=== PATIENT | male | born 1960 | race Two or more races ===

== ENCOUNTER 2020-11-04 10:47 | Observation (INO) ==
[2020-11-04 10:59] VITALS: BMI 27.6
--- NOTE | 2020-11-04 11:17 | DR.DIZZY ---
HPI Time seen Time Seen by Provider: 11/04/20 11:10 PCP Primary Care Physician: sunil HPI Comment HPI Comment: hx from d/t pt not speaking Croatian: has felt poorly for the past week w/weakness and sob; abruptly became dizzy this morning on way to work; associated with blurry vision; no n/v/abd pain, cp, sob, german, fevers or chills; lt ear bothers him a little and he has "a little diarrhea"; does not believe he's drinking appropriately for being out in heat like he is. Complaint Chief Complaint:: PT C/O 1 WEEK HISTORY OF MILD SHORTNESS OF BREATH. THIS MORNING WHILE WORKING OUTSIDE PT HAD A SUDDEN ONSET OF SEVERE DIZZINESS ASSOCIATED WITH BLURRY VISION AND GENERALIZED WEAKNESS. COVID-19 Coronavirus risk:travel/contact w/high risk person: No Has patient experienced Coronavirus symptoms: No Source History Provided: Patient Mode of Arrival Mode of Arrival: Ambulatory Timing Onset of Chief Complaint: 11/04/20 Context Stroke Symptoms: Dizziness PMH PMH Past Medical History: No Past Surgical History: Yes Surgical History: Appendectomy and Ortho Surgery Family History History of Family Medical Conditions: No Family Medical History: Diabetes Mellitus Social History Does patient currently use any type of tobacco product: No Have you used tobacco products in the last 12 months: No Type of Tobacco Use: None Does any household member use tobacco: No Alcohol Use: None Do you use any recreational Drugs:: No Lives With: Family Lives Where: Home Travel Risk Coronavirus risk:travel/contact w/high risk person: No Has patient experienced Coronavirus symptoms: No Infectious screening In the last 2 months have you had wt loss of >10#?: NO Have you had fever, night sweats or hemotysis?: No Have you traveled outside the country in the last 6 months?: No Isolation: Standard ROS Review of Systems Eyes: No Symptoms Reported ENTM: No Symptoms Reported Cardiovascular: No Symptoms Reported Genitourinary: No Symptoms Reported Musculoskeletal: No Symptoms Reported Integumentary: No Symptoms Reported Hematologic/Lymphatic: No Symptoms Reported Endocrine: No Symptoms Reported Psychiatric: No Symptoms Reported PE Vital Signs Vitals: Temperature 98.0 F Pulse Rate 61 Respiratory Rate 22 Blood Pressure [Left Arm] 162/78 Blood Pressure 160/79 O2 Sat by Pulse Oximetry 100 General Limitations: Language Barrier Head Head Exam: Normal Inspection Eyes Eye exam: Normal Appearance ENT ENT Exam: Normal Exam, Normal Oropharynx and Normal External Ear Exam Neck Neck Exam: Normal Inspection and Full ROM Chest Chest Inspection: Normal Inspection Respiratory Respiratory Exam: Normal Lung Sounds Bilat Cardiovascular Cardiovascular Exam: Regular Rate and Normal Rhythm Abdominal Exam Abdominal Exam: Normal Inspection, Normal Bowel Sounds and Soft Extremeties Extremities Exam: Normal Inspection and Full ROM Back Back Exam: Normal Inspection and Full ROM Neurologic Neurological Exam: Alert and Oriented X3 Psychiatric Psychiatric Exam: Normal Affect and Normal Mood Skin Skin Exam: Warm, Dry, Intact and Normal Color MDM Differential Diagnosis Differential Diagnosis: Dehydration, Electrolyte disorder, Meniere's disease, Myocardial infarction, TIA and Peripheral Vertigo COURSE Treatment Treatment: 12:56 now reports that he has had intermittent cp for some time but refused to be seen about it Reevaluation 1st: Unchanged Consultation Call Returned: 12:40 (Dr Foster accepts admission.) ROR Labs Reviewed Laboratory Results Reviewed?: Yes Result Diagrams: 11/04/20 11:25 11/04/20 11:25 Laboratory: WBC 7.4 X10^3/uL (3.6-10.0) 11/04/20 11:25 RBC 4.47 X10^6/uL (4.7-6.0) L 11/04/20 11:25 Hgb 13.7 g/dL (13.5-18.0) 11/04/20 11:25 Hct 39.2 % (42.0-54.0) L 11/04/20 11:25 MCV 87.8 fL (80.0-100.0) 11/04/20 11:25 MCH 30.6 pg (27.0-34.0) 11/04/20 11:25 MCHC 34.9 g/dL (33.0-35.0) 11/04/20 11:25 RDW 14.0 % (11.6-16.5) 11/04/20 11:25 Plt Count 203 X10^3/uL (150.0-450.0) 11/04/20 11:25 MPV 7.5 fL (7.4-11.0) 11/04/20 11:25 Neut % (Auto) 62.3 % (42.0-75.0) 11/04/20 11:25 Lymph % (Auto) 30.3 % (21.0-51.0) 11/04/20 11:25 [place] % (Auto) 5.3 % (0.0-13.0) 11/04/20 11:25 Eos % (Auto) 1.5 % (0.9-2.9) 11/04/20 11:25 Baso % (Auto) 0.6 % (0.2-1.0) 11/04/20 11:25 Neut # (Auto) 4.6 x10^3/uL (2.2-4.8) 11/04/20 11:25 Lymph # (Auto) 2.2 X10^3/uL (1.3-2.9) 11/04/20 11:25 [place] # (Auto) 0.4 x10^3/uL (0.3-0.8) 11/04/20 11:25 Eos # (Auto) 0.1 x10^3/uL (0.0-0.2) 11/04/20 11:25 Baso # (Auto) 0.0 X10^3/uL (0.0-0.1) 11/04/20 11:25 Absolute Nucleated RBC 0.0 /100WBC 11/04/20 11:25 Sodium 140 mmol/L (136-145) 11/04/20 11:25 Corrected Sodium 141 mmol/L (136-145) 11/04/20 11:25 Potassium 3.5 mmol/L (3.5-5.1) 11/04/20 11:25 Chloride 105 mmol/L (98-107) 11/04/20 11:25 Carbon Dioxide 24.6 mmol/L (21-32) 11/04/20 11:25 BUN 16 mg/dL (7-18) 11/04/20 11:25 Creatinine 0.97 mg/dL (0.70-1.30) 11/04/20 11:25 Est GFR (MDRD) Af Amer > 60 (>60) 11/04/20 11:25 Est GFR (MDRD) Non-Af > 60 (>60) 11/04/20 11:25 Glucose 147 mg/dL (65-99) H 11/04/20 11:25 Calcium 8.4 mg/dL (8.5-10.1) L 11/04/20 11:25 Corrected Calcium TNP 11/04/20 11:25 Total Bilirubin 0.40 mg/dL (0.2-1.0) 11/04/20 11:25 AST 27 Units/L (15-37) 11/04/20 11:25 ALT 63 Units/L (12-78) 11/04/20 11:25 Alkaline Phosphatase 100 Units/L (46-116) 11/04/20 11:25 Creatine Kinase 659 Units/L (39-308) H 11/04/20 11:25 CK-MB (CK-2) 7.5 ng/mL (0-4.0) H* 11/04/20 11:25 CK/CKMB % Calc 1.1 % (<4) 11/04/20 11:25 Troponin I < 0.02 ng/mL (0-1.5) 11/04/20 11:25 Total Protein 7.3 g/dL (6.4-8.2) 11/04/20 11:25 Albumin 3.7 g/dL (3.4-5.0) 11/04/20 11:25 Globulin 3.6 g/dL (2.5-4.5) 11/04/20 11:25 Albumin/Globulin Ratio 1.0 Ratio (1.1-2.1) L 11/04/20 11:25 Specimen Type Clean catch urine 11/04/20 11:49 Urine Color Yellow (YELLOW) 11/04/20 11:49 Urine Appearance Clear (CLEAR) 11/04/20 11:49 Urine pH 6.0 (5.0 - 8.0) 11/04/20 11:49 Ur Specific [place] 1.020 (1.000-1.030) 11/04/20 11:49 Urine Protein 1+ (NEGATIVE) 11/04/20 11:49 Urine Glucose (UA) Negative (NEGATIVE) 11/04/20 11:49 Urine Ketones Negative (NEGATIVE) 11/04/20 11:49 Urine Occult Blood 2+ (NEGATIVE) 11/04/20 11:49 Urine Nitrite Negative (NEGATIVE) 11/04/20 11:49 Urine Bilirubin Negative (NEGATIVE) 11/04/20 11:49 Urine Urobilinogen Normal (NORMAL) 11/04/20 11:49 Ur Leukocyte Esterase Negative (NEGATIVE) 11/04/20 11:49 Urine RBC 0-2 /HPF (0-3) 11/04/20 11:49 Urine WBC 0-2 /HPF (0-5) 11/04/20 11:49 Ur Squamous Epith Cells Rare /HPF (NEGATIVE) 11/04/20 11:49 Urine Bacteria Negative /HPF (NEGATIVE) 11/04/20 11:49 Ur Culture Indicated? No/not indicated 11/04/20 11:49 Opioid Opioid Risk Tool Age (John box if 16-45): No History of Preadolescent Sexual Abuse: No Total: 0 Total Score Risk Category: Low Risk Copyright: Alex GERMAIN predicting aberrant behaviors Diagnosis Discharge Problem: Dizziness, Breath, shortness, Elevated CK-MB level Chest pain Qualifiers: Chest pain type: unspecified Qualified Code(s): R07.9 - Chest pain, unspecified Headache Qualifiers: Headache type: other headache syndrome Qualified Code(s): G44.89 - Other headache syndrome Instructions Forms: Precautions for COVID19 Patient Portal Social Distancing
[2020-11-04 11:33] LABS: BASOPHILS % (AUTO) 0.6 % (0.2-1.0); EOSINOPHILS # (AUTO) 0.1 x10^3/uL (0.0-0.2); EOSINOPHILS % (AUTO) 1.5 % (0.9-2.9); HEMATOCRIT 39.2 % (42.0-54.0); HEMOGLOBIN 13.7 g/dL (13.5-18.0); LYMPHOCYTES # (AUTO) 2.2 X10^3/uL (1.3-2.9); LYMPHOCYTES % (AUTO) 30.3 % (21.0-51.0); MEAN CORPUSCULAR HEMOGLOBIN 30.6 pg (27.0-34.0); MEAN CORPUSCULAR HGB CONC 34.9 g/dL (33.0-35.0); MEAN CORPUSCULAR VOLUME 87.8 fL (80.0-100.0); MEAN PLATELET VOLUME 7.5 fL (7.4-11.0); MONOCYTES # (AUTO) 0.4 x10^3/uL (0.3-0.8); MONOCYTES % (AUTO) 5.3 % (0.0-13.0); NEUTROPHILS # (AUTO) 4.6 x10^3/uL (2.2-4.8); NEUTROPHILS % (AUTO) 62.3 % (42.0-75.0); PLATELET COUNT 203 X10^3/uL (150.0-450.0); RED BLOOD COUNT 4.47 X10^6/uL (4.7-6.0); WHITE BLOOD COUNT 7.4 X10^3/uL (3.6-10.0)
[2020-11-04 12:11] LABS: ALANINE AMINOTRANSFERASE 63 Units/L (12-78); ALBUMIN 3.7 g/dL (3.4-5.0); ALKALINE PHOSPHATASE 100 Units/L (46-116); ASPARTATE AMINO TRANSFERASE 27 Units/L (15-37); BLOOD UREA NITROGEN 16 mg/dL (7-18); CALCIUM 8.4 mg/dL (8.5-10.1); CARBON DIOXIDE 24.6 mmol/L (21-32); CHLORIDE 105 mmol/L (98-107); CKMB % 1.1 % (<4); COR NA(FOR HYPERGLY) 141 mmol/L (136-145); CREATINE KINASE 659 Units/L (39-308); CREATININE 0.97 mg/dL (0.70-1.30); SODIUM 140 mmol/L (136-145); TOTAL PROTEIN 7.3 g/dL (6.4-8.2); TROPONIN I < 0.02 ng/mL (0-1.5); eGFR NON BLACK RACES > 60 (>60)
[2020-11-04 12:11] LABS: BILIRUBIN,URINE NEGATIVE (NEGATIVE); BLOOD/HEMOGLOBIN,URINE 2+ (NEGATIVE); GLUCOSE, URINE NEGATIVE (NEGATIVE); KETONES,URINE NEGATIVE (NEGATIVE); LEUKOCYTE ESTERASE ,URINE NEGATIVE (NEGATIVE); NITRITES,URINE NEGATIVE (NEGATIVE); PROTEIN,URINE 1+ (NEGATIVE); UROBILINOGEN,URINE NORMAL (NORMAL)
[2020-11-04 12:12] LABS: CREATINE KINASE MB 7.5 ng/mL (0-4.0)
[2020-11-04 12:22] LABS: APPEARANCE,URINE CLEAR (CLEAR); COLOR,URINE YELLOW (YELLOW)
[2020-11-04 12:23] LABS: BACTERIA,URINE NEGATIVE /HPF (NEGATIVE); RBC,URINE 0-2 /HPF (0-3); SQUAMOUS EPITHELIAL CELL,UR RARE /HPF (NEGATIVE)
[2020-11-04] MEDS ORDERED: MICRO K EXTEN CAP 10 MEQ PO PRN (14:23)
[2020-11-04] MEDS ORDERED: POTASSIUM CHL 40 MEQ/NS 0.45% 500 ML IV PRN (14:23)
[2020-11-04] MEDS ORDERED: POTASSIUM CHL 60 MEQ/NS 0.45% 500 ML IV PRN (14:23)
[2020-11-04] MEDS ORDERED: POTASSIUM CHLORIDE LIQ 20 MEQ UDC PO PRN (14:23)
[2020-11-04] MEDS ORDERED: KLOR-CON PO PRN (14:23)
[2020-11-04] MEDS ORDERED: K-RIDER 10 MEQ/NS 100 ML 10 MEQ/100 ML BAG IV PRN (14:23)
[2020-11-04 17:55] LABS: CREATINE KINASE 601 Units/L (39-308); TROPONIN I < 0.02 ng/mL (0-1.5)
[2020-11-04 17:57] LABS: CREATINE KINASE MB 6.1 ng/mL (0-4.0)
[2020-11-04] MEDS: K-DUR TAB 20 MEQ PO PRN (18:17)
[2020-11-04 23:18] LABS: CKMB % 1.1 % (<4); CREATINE KINASE 519 Units/L (39-308); TROPONIN I < 0.02 ng/mL (0-1.5)
[2020-11-04 23:24] LABS: CREATINE KINASE MB 5.5 ng/mL (0-4.0)
[2020-11-05 05:56] LABS: CKMB % 1.1 % (<4); CREATINE KINASE 431 Units/L (39-308); TROPONIN I < 0.02 ng/mL (0-1.5)
[2020-11-05 05:57] LABS: CREATINE KINASE MB 4.9 ng/mL (0-4.0)
[2020-11-05 08:14] LABS: BASOPHILS # (AUTO) 0.1 X10^3/uL (0.0-0.1); BASOPHILS % (AUTO) 0.6 % (0.2-1.0); EOSINOPHILS # (AUTO) 0.1 x10^3/uL (0.0-0.2); EOSINOPHILS % (AUTO) 1.3 % (0.9-2.9); HEMATOCRIT 41.2 % (42.0-54.0); HEMOGLOBIN 14.3 g/dL (13.5-18.0); LYMPHOCYTES # (AUTO) 2.4 X10^3/uL (1.3-2.9); LYMPHOCYTES % (AUTO) 27.3 % (21.0-51.0); MEAN CORPUSCULAR HEMOGLOBIN 31.1 pg (27.0-34.0); MEAN CORPUSCULAR HGB CONC 34.7 g/dL (33.0-35.0); MEAN CORPUSCULAR VOLUME 89.7 fL (80.0-100.0); MEAN PLATELET VOLUME 8.4 fL (7.4-11.0); MONOCYTES # (AUTO) 0.6 x10^3/uL (0.3-0.8); MONOCYTES % (AUTO) 7.5 % (0.0-13.0); NEUTROPHILS # (AUTO) 5.5 x10^3/uL (2.2-4.8); NEUTROPHILS % (AUTO) 63.3 % (42.0-75.0); PLATELET COUNT 213 X10^3/uL (150.0-450.0); RED BLOOD COUNT 4.59 X10^6/uL (4.7-6.0); RED CELL DISTRIBUTION WIDTH 14.1 % (11.6-16.5); WHITE BLOOD COUNT 8.6 X10^3/uL (3.6-10.0)
[2020-11-05 08:20] LABS: ALANINE AMINOTRANSFERASE 57 Units/L (12-78); ALBUMIN 3.6 g/dL (3.4-5.0); ALKALINE PHOSPHATASE 92 Units/L (46-116); ASPARTATE AMINO TRANSFERASE 33 Units/L (15-37); BLOOD UREA NITROGEN 12 mg/dL (7-18); CALCIUM 8.9 mg/dL (8.5-10.1); CARBON DIOXIDE 25.1 mmol/L (21-32); CHLORIDE 106 mmol/L (98-107); CREATININE 0.82 mg/dL (0.70-1.30); SODIUM 142 mmol/L (136-145); TOTAL PROTEIN 7.2 g/dL (6.4-8.2); eGFR NON BLACK RACES > 60 (>60)
[2020-11-05] MEDS ORDERED: ZOFRAN INJ 4 MG VIAL ONE (09:54)
[2020-11-05] MEDS ORDERED: MORPHINE SULFATE INJ 2 MG INJ ONE (09:55)
[2020-11-05 10:53] LABS: CKMB % 1.1 % (<4); CREATINE KINASE 389 Units/L (39-308); TROPONIN I < 0.02 ng/mL (0-1.5)
[2020-11-05] MEDS ORDERED: MORPHINE SULFATE INJ 2 MG INJ IVP PRN (10:53)
[2020-11-05] MEDS ORDERED: ZOFRAN INJ 4 MG VIAL IVP PRN (10:55)
[2020-11-05 10:56] LABS: CREATINE KINASE MB 4.4 ng/mL (0-4.0)
[2020-11-05] MEDS: PROTONIX INJ 40 MG VIAL IVP SCH ×2 (11:24→21:24)
--- NOTE | 2020-11-05 11:39 | RAD ---
HISTORYCHEST PAIN, SOBSTUDYCHEST, 1 VIEWCOMPARISONNoneFINDINGSThe lungs are clear. No pneumothorax or significant effusion.The heart size is magnified.Bones are unremarkable.EKG leads are noted.IMPRESSION1. No significant abnormalityElectronically signed by: Neel Cottrell (Nov 05, 2020 11:37:49)
--- NOTE | 2020-11-05 15:22 | DR.H&P ---
H&P - History & Physical for Day of: H&P Date: 11/04/20 - Chief Complaint Chief Complaint: RIGHT SIDE CHEST PAIN, DIZZINESS - History of Present Illness History of Present Illness: PT IS 60 HM ER ADMISSION WITH CO REOCCURRING EPISODES OF SEVERE DIZZINESS TODAY WITH RIGHT SIDE CHEST PAIN. PT HAS CO GUSTAFSON AND DIZZINESS OVER PAST WEEK WITHOUT ANY FEVER, DENIES INCREASES SOB. PT WAS COVID NEG IN ER AND STATES HE HAD MODERNA VACCINE X2. PT SPOUSE REPORTS HE HAD ISSUES WITH BP LAST YEAR, BUT NO MEDICATION AND DENIES ANY CAD. PT ADMITTED FOR TREATMENT AND EVALUATION OF ACUTE ILLNESS. - Past Medical History Past Medical History: Hypertension - Past Surgical History Surgical History: Appendectomy, Ortho Surgery Additional Surgical History: SKIN GRAFT LLE - Family History Family Medical History: Diabetes Mellitus - Social History Does patient currently use any type of tobacco product: No Have you used tobacco products in the last 12 months: No Type of Tobacco Use: None Does any household member use tobacco: No Alcohol Use: None Drug Use: None - Medications Home Medications: No Known Allergies Allergy (Verified 09/10/17 19:12) CONTINUE taking the following medications NK 11/04/20 [History] - Review of Systems Constitutional: Weakness, Malaise Eyes: No Symptoms Reported ENT: No Symptoms Reported Respiratory: No Symptoms Reported Cardiovascular: Light Headedness Gastrointestinal: Nausea Genitourinary: No Symptoms Reported Musculoskeletal: No Symptoms Reported Skin: No Symptoms Reported Neurological: Other (DIZZINESS) - Physical Exam Vital Signs: Temperature 97.6 F Pulse Rate [Left Brachial] 51 Pulse Rate 61 Respiratory Rate 20 Blood Pressure [Left Arm] 144/83 Blood Pressure 160/79 O2 Sat by Pulse Oximetry 99 Oriented: Normal Eyes: Normal Ear: Normal Nose: Normal Throat: Normal Respiratory: Clear Throughout Cardiovascular: Bradycardia. negative: Murmur, Edema : Normal Auscultation: Bowel Sounds: Normal Palpation: Normal Tenderness: Normal Skin: Normal Musculoskeletal: Normal Psychiatric: Normal Mood Description: Calm Speech Pattern: Clear, Appropriate - Assessment/Plan (1) Chest pain Qualifiers: Chest pain type: unspecified Qualified Code(s): R07.9 - Chest pain, unspecified Status: Acute Plan: ADMIT, SERIAL CE AND EKG. CXR ON ADMISSION. BP CONTROL, STRICT I&OS. PAIN CONTROL, VERIFY HOME MEDICATION. TELEMETRY PRN SUPPLEMENTAL O2 (2) Bradycardia Status: Acute (3) Dizziness Status: Acute (4) Headache Qualifiers: Headache type: other headache syndrome Qualified Code(s): G44.89 - Other headache syndrome Status: Acute (5) Elevated CK-MB level Status: Acute - Allergies Allergies/Adverse Reactions: Allergies Allergy/AdvReac Type Severity Reaction Status Date / Time No Known Allergies Allergy Verified 09/10/17 19:12
[2020-11-05 15:53] LABS: FREE T4 (FREE THYROXINE) 1.08 ng/dL (0.76-1.46); TSH (3RD GENERATION) 2.003 uIU/mL (0.358-3.74)
[2020-11-05 16:04] LABS: CKMB % 1.1 % (<4); CREATINE KINASE 320 Units/L (39-308); CREATINE KINASE MB 3.6 ng/mL (0-4.0); TROPONIN I < 0.02 ng/mL (0-1.5)
[2020-11-05] MEDS ORDERED: APRESOLINE INJ 20 MG VIAL IVP PRN (16:19)
--- NOTE | 2020-11-05 16:51 | CT ---
HISTORYINRACTABLE DIZZINESS, HEADACHE, NVSTUDYBRAIN W/O CONCOMPARISONNone available.TECHNIQUEAxial non-contrast images of the head with coronal and sagittal reformats.Radiation dose: 1223.30 mGy-cm total DLPFINDINGSNo abnormal areas of acute attenuation in the brain parenchyma.Gonzalez-white differentiation remains intact.No intracranial, extra-axial, fluid collection.No hemorrhage.No mass, mass effect or midline shift.No ventriculomegaly.No acute fracture.Sinuses are well aerated.Mastoid air cells are well aerated.Globes and intraorbital contents are unremarkable.IMPRESSIONNo acute intracranial abnormality identified.Electronically signed by: Joselito Mcgee (Nov 05, 2020 16:49:26)
[2020-11-05] MEDS: NS 1000 ML 1,000 ML IV SCH (17:16)
[2020-11-05 21:21] LABS: CKMB % 1.2 % (<4); CREATINE KINASE 301 Units/L (39-308); CREATINE KINASE MB 3.6 ng/mL (0-4.0); TROPONIN I < 0.02 ng/mL (0-1.5)
[2020-11-05] MEDS ORDERED: PHENERGAN INJ 25 MG IM ONE (22:01)
[2020-11-05] MEDS: PHENERGAN INJ 25 MG IM ONE ×2 (22:17→22:20)
[2020-11-06 04:00] LABS: CKMB % 1.1 % (<4); CREATINE KINASE 333 Units/L (39-308); CREATINE KINASE MB 3.5 ng/mL (0-4.0); TROPONIN I < 0.02 ng/mL (0-1.5)
[2020-11-06] MEDS: PROTONIX INJ 40 MG VIAL IVP SCH ×2 (08:12→21:46)
[2020-11-06] MEDS: NS 1000 ML 1,000 ML IV SCH ×2 (08:12→22:46)
[2020-11-06 09:39] LABS: BASOPHILS % (AUTO) 0.2 % (0.2-1.0); EOSINOPHILS # (AUTO) 0.1 x10^3/uL (0.0-0.2); EOSINOPHILS % (AUTO) 0.6 % (0.9-2.9); HEMATOCRIT 41.8 % (42.0-54.0); HEMOGLOBIN 14.4 g/dL (13.5-18.0); LYMPHOCYTES % (AUTO) 19.8 % (21.0-51.0); MEAN CORPUSCULAR HEMOGLOBIN 30.6 pg (27.0-34.0); MEAN CORPUSCULAR HGB CONC 34.4 g/dL (33.0-35.0); MEAN CORPUSCULAR VOLUME 88.9 fL (80.0-100.0); MEAN PLATELET VOLUME 7.9 fL (7.4-11.0); MONOCYTES # (AUTO) 0.6 x10^3/uL (0.3-0.8); MONOCYTES % (AUTO) 6.3 % (0.0-13.0); NEUTROPHILS # (AUTO) 7.4 x10^3/uL (2.2-4.8); NEUTROPHILS % (AUTO) 73.1 % (42.0-75.0); PLATELET COUNT 216 X10^3/uL (150.0-450.0); RED BLOOD COUNT 4.71 X10^6/uL (4.7-6.0); RED CELL DISTRIBUTION WIDTH 14.1 % (11.6-16.5); WHITE BLOOD COUNT 10.1 X10^3/uL (3.6-10.0)
[2020-11-06 09:54] LABS: ALANINE AMINOTRANSFERASE 54 Units/L (12-78); ALBUMIN 3.7 g/dL (3.4-5.0); ALKALINE PHOSPHATASE 89 Units/L (46-116); ASPARTATE AMINO TRANSFERASE 29 Units/L (15-37); BLOOD UREA NITROGEN 16 mg/dL (7-18); CALCIUM 8.8 mg/dL (8.5-10.1); CARBON DIOXIDE 29.1 mmol/L (21-32); CHLORIDE 108 mmol/L (98-107); CREATININE 0.86 mg/dL (0.70-1.30); SODIUM 144 mmol/L (136-145); TOTAL PROTEIN 7.3 g/dL (6.4-8.2); eGFR NON BLACK RACES > 60 (>60)
--- NOTE | 2020-11-06 10:39 | US ---
HISTORYN/VSTUDYGALL BLADDERCOMPARISONNoneTECHNIQUEMultiple cerda scale and color flow Doppler images of the right upper quadrant were obtained.FINDINGSThe liver is mildly echogenic i.e. fatty but normal in size. The right lobe of the liver measures 14 cm sagittal. No focal intraparenchymal mass or intrahepatic biliary ductal dilatation can be observed. Normal flow is seen in the hepatic veins the main portal vein the gallbladder fails to demonstrate evidence for cholelithiasis but there is a small amount of dependent sludge.. The common bile duct is unremarkable measuring 2 mm. No pericholecystic fluid or gallbladder wall thickening can be observed .The right kidney appears normal in size without focal parenchymal mass or nephrolithiasis. The right kidney measurers 11 cm in length by 5.5 cm AP cortical thickness 1.8 cm with a transverse diameter of 5.8 cm. There is normal vascular flow within the right kidney. Resistance index is 0.68.. No hydronephrosis or perirenal fluid can be observed. The pancreatic head and body are unremarkable. The pancreatic tail is partially obscured by overlying bowel gas.There is normal flow in the IVC.IMPRESSIONThe liver is echogenic i.e. mildly fatty but normal in size. No focal hepatic lesions are dilated ducts are observed.The gallbladder contains a small amount of sludge but no stones are seen. The common duct is normal at 2 mm.The visualized portions of the pancreas and the right kidney are normal.Electronically signed by: CONNIE DIAS (Nov 06, 2020 10:37:47)
[2020-11-07 08:36] LABS: BASOPHILS # (AUTO) 0.1 X10^3/uL (0.0-0.1); BASOPHILS % (AUTO) 0.7 % (0.2-1.0); EOSINOPHILS # (AUTO) 0.1 x10^3/uL (0.0-0.2); EOSINOPHILS % (AUTO) 0.7 % (0.9-2.9); HEMATOCRIT 42.2 % (42.0-54.0); HEMOGLOBIN 14.5 g/dL (13.5-18.0); LYMPHOCYTES % (AUTO) 21.7 % (21.0-51.0); MEAN CORPUSCULAR HEMOGLOBIN 30.6 pg (27.0-34.0); MEAN CORPUSCULAR HGB CONC 34.4 g/dL (33.0-35.0); MEAN CORPUSCULAR VOLUME 88.8 fL (80.0-100.0); MEAN PLATELET VOLUME 7.8 fL (7.4-11.0); MONOCYTES # (AUTO) 0.5 x10^3/uL (0.3-0.8); MONOCYTES % (AUTO) 5.7 % (0.0-13.0); NEUTROPHILS # (AUTO) 6.7 x10^3/uL (2.2-4.8); NEUTROPHILS % (AUTO) 71.2 % (42.0-75.0); PLATELET COUNT 218 X10^3/uL (150.0-450.0); RED BLOOD COUNT 4.75 X10^6/uL (4.7-6.0); RED CELL DISTRIBUTION WIDTH 13.8 % (11.6-16.5); WHITE BLOOD COUNT 9.4 X10^3/uL (3.6-10.0)
[2020-11-07] MEDS: NS 1000 ML 1,000 ML IV SCH ×2 (08:36→11:13)
[2020-11-07] MEDS: PROTONIX INJ 40 MG VIAL IVP SCH ×2 (08:37→20:34)
[2020-11-07 08:54] LABS: ALANINE AMINOTRANSFERASE 53 Units/L (12-78); ALBUMIN 3.6 g/dL (3.4-5.0); ALKALINE PHOSPHATASE 85 Units/L (46-116); ASPARTATE AMINO TRANSFERASE 29 Units/L (15-37); BLOOD UREA NITROGEN 17 mg/dL (7-18); CALCIUM 8.9 mg/dL (8.5-10.1); CARBON DIOXIDE 30.6 mmol/L (21-32); CHLORIDE 108 mmol/L (98-107); CREATININE 0.87 mg/dL (0.70-1.30); SODIUM 144 mmol/L (136-145); TOTAL PROTEIN 7.2 g/dL (6.4-8.2); eGFR NON BLACK RACES > 60 (>60)
[2020-11-08] MEDS: NS 1000 ML 1,000 ML IV SCH ×3 (02:07→15:58)
[2020-11-08 08:17] LABS: BASOPHILS % (AUTO) 0.5 % (0.2-1.0); EOSINOPHILS # (AUTO) 0.1 x10^3/uL (0.0-0.2); EOSINOPHILS % (AUTO) 0.7 % (0.9-2.9); HEMATOCRIT 41.4 % (42.0-54.0); HEMOGLOBIN 14.5 g/dL (13.5-18.0); LYMPHOCYTES # (AUTO) 2.2 X10^3/uL (1.3-2.9); MEAN CORPUSCULAR VOLUME 88.5 fL (80.0-100.0); MEAN PLATELET VOLUME 7.9 fL (7.4-11.0); MONOCYTES # (AUTO) 0.6 x10^3/uL (0.3-0.8); MONOCYTES % (AUTO) 6.7 % (0.0-13.0); NEUTROPHILS # (AUTO) 6.4 x10^3/uL (2.2-4.8); NEUTROPHILS % (AUTO) 68.1 % (42.0-75.0); PLATELET COUNT 225 X10^3/uL (150.0-450.0); RED BLOOD COUNT 4.68 X10^6/uL (4.7-6.0); WHITE BLOOD COUNT 9.4 X10^3/uL (3.6-10.0)
[2020-11-08] MEDS: PROTONIX INJ 40 MG VIAL IVP SCH ×2 (08:47→20:46)
[2020-11-08 09:11] LABS: ALANINE AMINOTRANSFERASE 47 Units/L (12-78); ALBUMIN 3.7 g/dL (3.4-5.0); ALKALINE PHOSPHATASE 87 Units/L (46-116); ASPARTATE AMINO TRANSFERASE 27 Units/L (15-37); BLOOD UREA NITROGEN 11 mg/dL (7-18); CALCIUM 8.8 mg/dL (8.5-10.1); CHLORIDE 107 mmol/L (98-107); CREATININE 0.85 mg/dL (0.70-1.30); SODIUM 142 mmol/L (136-145); TOTAL PROTEIN 7.3 g/dL (6.4-8.2); eGFR NON BLACK RACES > 60 (>60)
[2020-11-08] MEDS ORDERED: LEXISCAN IV ONE (12:50)
[2020-11-08] MEDS: K-DUR TAB 20 MEQ PO PRN (13:37)
[2020-11-08] MEDS: ZESTRIL TAB 5 MG PO SCH (20:46)
[2020-11-09] MEDS: NS 1000 ML 1,000 ML IV SCH ×3 (02:19→22:46)
[2020-11-09 08:40] LABS: BASOPHILS % (AUTO) 0.5 % (0.2-1.0); EOSINOPHILS # (AUTO) 0.1 x10^3/uL (0.0-0.2); EOSINOPHILS % (AUTO) 0.7 % (0.9-2.9); HEMOGLOBIN 14.8 g/dL (13.5-18.0); LYMPHOCYTES % (AUTO) 20.6 % (21.0-51.0); MEAN CORPUSCULAR HEMOGLOBIN 30.6 pg (27.0-34.0); MEAN CORPUSCULAR HGB CONC 34.5 g/dL (33.0-35.0); MEAN CORPUSCULAR VOLUME 88.7 fL (80.0-100.0); MEAN PLATELET VOLUME 7.8 fL (7.4-11.0); MONOCYTES # (AUTO) 0.5 x10^3/uL (0.3-0.8); MONOCYTES % (AUTO) 5.5 % (0.0-13.0); NEUTROPHILS # (AUTO) 6.9 x10^3/uL (2.2-4.8); NEUTROPHILS % (AUTO) 72.7 % (42.0-75.0); PLATELET COUNT 231 X10^3/uL (150.0-450.0); RED BLOOD COUNT 4.85 X10^6/uL (4.7-6.0); RED CELL DISTRIBUTION WIDTH 13.9 % (11.6-16.5); WHITE BLOOD COUNT 9.5 X10^3/uL (3.6-10.0)
[2020-11-09 08:53] LABS: BLOOD UREA NITROGEN 12 mg/dL (7-18); CALCIUM 8.9 mg/dL (8.5-10.1); CHLORIDE 105 mmol/L (98-107); COR NA(FOR HYPERGLY) 141 mmol/L (136-145); CREATININE 0.84 mg/dL (0.70-1.30); SODIUM 141 mmol/L (136-145); eGFR NON BLACK RACES > 60 (>60)
[2020-11-09] MEDS: PROTONIX INJ 40 MG VIAL IVP SCH ×2 (09:57→21:25)
[2020-11-09] MEDS: ZESTRIL TAB 5 MG PO SCH (09:57)
[2020-11-09 11:50] LABS: ALANINE AMINOTRANSFERASE 43 Units/L (12-78); ALBUMIN 3.8 g/dL (3.4-5.0); ALKALINE PHOSPHATASE 87 Units/L (46-116); ASPARTATE AMINO TRANSFERASE 25 Units/L (15-37); TOTAL PROTEIN 7.5 g/dL (6.4-8.2)
[2020-11-09] MEDS ORDERED: PEPCID TAB 20 MG PO ONE (23:32)
[2020-11-10 04:03] VITALS: BP 120/70
[2020-11-10 06:05] LABS: BASOPHILS # (AUTO) 0.1 X10^3/uL (0.0-0.1); BASOPHILS % (AUTO) 0.5 % (0.2-1.0); EOSINOPHILS # (AUTO) 0.1 x10^3/uL (0.0-0.2); EOSINOPHILS % (AUTO) 0.8 % (0.9-2.9); HEMATOCRIT 38.1 % (42.0-54.0); HEMOGLOBIN 13.4 g/dL (13.5-18.0); LYMPHOCYTES # (AUTO) 1.7 X10^3/uL (1.3-2.9); LYMPHOCYTES % (AUTO) 15.7 % (21.0-51.0); MEAN CORPUSCULAR HEMOGLOBIN 30.9 pg (27.0-34.0); MEAN CORPUSCULAR HGB CONC 35.1 g/dL (33.0-35.0); MEAN CORPUSCULAR VOLUME 88.1 fL (80.0-100.0); MEAN PLATELET VOLUME 7.7 fL (7.4-11.0); MONOCYTES # (AUTO) 0.9 x10^3/uL (0.3-0.8); MONOCYTES % (AUTO) 8.2 % (0.0-13.0); NEUTROPHILS # (AUTO) 8.1 x10^3/uL (2.2-4.8); NEUTROPHILS % (AUTO) 74.8 % (42.0-75.0); PLATELET COUNT 217 X10^3/uL (150.0-450.0); RED BLOOD COUNT 4.32 X10^6/uL (4.7-6.0); RED CELL DISTRIBUTION WIDTH 13.9 % (11.6-16.5); WHITE BLOOD COUNT 10.8 X10^3/uL (3.6-10.0)
[2020-11-10 06:25] LABS: ALANINE AMINOTRANSFERASE 38 Units/L (12-78); ALBUMIN 3.4 g/dL (3.4-5.0); ALKALINE PHOSPHATASE 86 Units/L (46-116); ASPARTATE AMINO TRANSFERASE 21 Units/L (15-37); BLOOD UREA NITROGEN 13 mg/dL (7-18); CALCIUM 8.5 mg/dL (8.5-10.1); CARBON DIOXIDE 29.6 mmol/L (21-32); CHLORIDE 108 mmol/L (98-107); CREATININE 0.81 mg/dL (0.70-1.30); SODIUM 143 mmol/L (136-145); TOTAL PROTEIN 6.8 g/dL (6.4-8.2); eGFR NON BLACK RACES > 60 (>60)
[2020-11-10] MEDS: ZESTRIL TAB 5 MG PO SCH (09:54)
[2020-11-10] MEDS: PROTONIX INJ 40 MG VIAL IVP SCH (09:54)
--- NOTE | 2020-11-10 13:11 | NM ---
Nuclear medicine hepatobiliary scanEjection fractionIndication: Right upper quadrant pain.Comparison: November 06, 2020 sonogramTECHNIQUE5.3 millicuries of technetium 99 M Choletec given IV, with 8 ounces of Ensure Plus for ejection fraction given. Planar imaging obtained. Ejection fraction calculatedFindings: There is prompt uptake of radiotracer by the liver. Gallbladder begins filling by 20 minutes. Common bile duct and small bowel activity are normal. Ejection fraction calculated at 20 3 percent by 30 minutes.Impression:1. No evidence of acute cholecystitis2. Decreased ejection fraction. Gallbladder dysfunction possible.Electronically signed by: DIANE FRAUSTO (Nov 10, 2020 13:08:50)
== END 2020-11-10 14:55 | disposition home or self-care (01) ==
LOC: MED/SURG 10:52 → ER 10:52 → MED/SURG 14:10
PROVIDERS: ADMIT Internal Medicine; ATTEND Internal Medicine
DX: R94.30 Abnormal result of cardiovascular function study, unspecified; R51.9 Headache, unspecified; R42 Dizziness and giddiness; Z20.822 Contact with and (suspected) exposure to COVID-19; R07.89 Other chest pain; R00.1 Bradycardia, unspecified; R55 Syncope and collapse; R53.1 Weakness; R06.2 Wheezing; I10 Essential (primary) hypertension

== ENCOUNTER 2023-12-10 15:15 | Inpatient (IN) ==
[2023-12-10 15:33] VITALS: BMI 27.7
--- NOTE | 2023-12-10 15:34 | DR.DIZZY ---
HPI Time seen Time Seen by Provider: 12/10/23 15:33 PCP Primary Care Physician: Holden Sorto NP Complaint Chief Complaint:: c/o generalized weakness for approx 1 week. reports SOB and CP occasionally but not at this time. COVID-19 Coronavirus risk:travel/contact w/high risk person: No Has patient experienced Coronavirus symptoms: No Source History Provided: Significant Other Mode of Arrival Mode of Arrival: Ambulatory Timing Onset of Chief Complaint: 12/10/23 PMH PMH Past Medical History: Yes Past Medical History: Arthritis and Hypertension Past Surgical History: Yes Surgical History: Appendectomy Past Surgical History Comment: skin graft left thigh Family History History of Family Medical Conditions: Yes Family Medical History: Diabetes Mellitus, Coronary Artery Disease and Hypertension Social History Type of Tobacco Use: None Alcohol Use: None Do you use any recreational Drugs:: No Lives With: Spouse Lives Where: Home Travel Risk Coronavirus risk:travel/contact w/high risk person: No Has patient experienced Coronavirus symptoms: No Infectious screening Have you traveled outside the country in the last 6 months?: No Isolation: Standard PE Vital Signs Vitals: Vital Signs Temperature 97.7 F Pulse Rate 55 Pulse Rate 57 Pulse Rate 56 Pulse Rate 70 Respiratory Rate 20 Respiratory Rate 20 Respiratory Rate 20 Respiratory Rate 22 Blood Pressure 128/66 Blood Pressure 128/66 Blood Pressure 138/66 Blood Pressure 128/66 O2 Sat by Pulse Oximetry 96 O2 Sat by Pulse Oximetry 99 O2 Sat by Pulse Oximetry 97 O2 Sat by Pulse Oximetry 96 [facility]OR Labs Reviewed 12/10/23 16:10 12/10/23 16:10 Laboratory: WBC 10.0 X10^3/uL (3.6-10.0) 12/10/23 16:10 RBC 4.08 X10^6/uL (4.7-6.0) L 12/10/23 16:10 Hgb 12.6 g/dL (13.5-18.0) L 12/10/23 16:10 Hct 36.6 % (42.0-54.0) L 12/10/23 16:10 MCV 89.8 fL (80.0-100.0) 12/10/23 16:10 MCH 31.0 pg (27.0-34.0) 12/10/23 16:10 MCHC 34.5 g/dL (33.0-35.0) 12/10/23 16:10 RDW 14.2 % (11.6-16.5) 12/10/23 16:10 Plt Count 179 X10^3/uL (150.0-450.0) 12/10/23 16:10 MPV 7.4 fL (7.4-11.0) 12/10/23 16:10 Neut % (Auto) 79.9 % (42.0-75.0) H 12/10/23 16:10 Lymph % (Auto) 14.2 % (21.0-51.0) L 12/10/23 16:10 [place] % (Auto) 4.0 % (0.0-13.0) 12/10/23 16:10 Eos % (Auto) 0.9 % (0.9-2.9) 12/10/23 16:10 Baso % (Auto) 1.0 % (0.2-1.0) 12/10/23 16:10 Neut # (Auto) 8.0 x10^3/uL (2.2-4.8) H 12/10/23 16:10 Lymph # (Auto) 1.4 X10^3/uL (1.3-2.9) 12/10/23 16:10 [place] # (Auto) 0.4 x10^3/uL (0.3-0.8) 12/10/23 16:10 Eos # (Auto) 0.1 x10^3/uL (0.0-0.2) 12/10/23 16:10 Baso # (Auto) 0.1 X10^3/uL (0.0-0.1) 12/10/23 16:10 Absolute Nucleated RBC 0.0 /100WBC 12/10/23 16:10 Sodium 136 mmol/L (136-145) 12/10/23 16:10 Corrected Sodium 137 mmol/L (136-145) 12/10/23 16:10 Potassium 4.1 mmol/L (3.5-5.1) 12/10/23 16:10 Chloride 101 mmol/L (98-107) 12/10/23 16:10 Carbon Dioxide 24.3 mmol/L (21-32) 12/10/23 16:10 BUN 19 mg/dL (7-18) H 12/10/23 16:10 Creatinine 0.84 mg/dL (0.70-1.30) 12/10/23 16:10 Est GFR (MDRD) Af Amer > 60 (>60) 12/10/23 16:10 Est GFR (MDRD) Non-Af > 60 (>60) 12/10/23 16:10 Glucose 136 mg/dL (65-99) H 12/10/23 16:10 Calcium 8.2 mg/dL (8.5-10.1) L 12/10/23 16:10 Corrected Calcium 8.8 mg/dL (8.5-10.1) 12/10/23 16:10 Total Bilirubin 0.40 mg/dL (0.2-1.0) 12/10/23 16:10 AST 52 Units/L (15-37) H 12/10/23 16:10 ALT 50 Units/L (12-78) 12/10/23 16:10 Alkaline Phosphatase 107 Units/L (46-116) 12/10/23 16:10 Creatine Kinase 2364 Units/L (39-308) H 12/10/23 16:10 Troponin I High Sens 41.8 ng/L (4.0-60.0) 12/10/23 16:10 Total Protein 6.6 g/dL (6.4-8.2) 12/10/23 16:10 Albumin 3.2 g/dL (3.4-5.0) L 12/10/23 16:10 Globulin 3.4 g/dL (2.5-4.5) 12/10/23 16:10 Albumin/Globulin Ratio 0.9 Ratio (1.1-2.1) L 12/10/23 16:10 Specimen Type Clean catch urine 12/10/23 16:20 Urine Color Yellow (YELLOW) 12/10/23 16:20 Urine Appearance Clear (CLEAR) 12/10/23 16:20 Urine pH 7.0 (5.0 - 8.0) 12/10/23 16:20 Ur Specific [place] 1.010 (1.000-1.030) 12/10/23 16:20 Urine Protein Negative (NEGATIVE) 12/10/23 16:20 Urine Glucose (UA) Negative (NEGATIVE) 12/10/23 16:20 Urine Ketones Negative (NEGATIVE) 12/10/23 16:20 Urine Blood Negative (NEGATIVE) 12/10/23 16:20 Urine Nitrite Negative (NEGATIVE) 12/10/23 16:20 Urine Bilirubin Negative (NEGATIVE) 12/10/23 16:20 Urine Urobilinogen Normal (NORMAL) 12/10/23 16:20 Ur Leukocyte Esterase Negative (NEGATIVE) 12/10/23 16:20 Opioid Opioid Risk Tool Age (John box if 16-45): No History of Preadolescent Sexual Abuse: No Total: 0 Total Score Risk Category: Low Risk Copyright: Alex GERMAIN predicting aberrant behaviors Discharge Plan Diagnosis Discharge Problem: Rhabdomyolysis, Generalized weakness, Chest pain Discharge Plan Patient Disposition: ADMITTED INPATIENT Condition: Stable Prescriptions: No Action ibuprofen 800 mg tablet 800 mg PO Q6H PRN (Reason: pain) tizanidine 4 mg tablet 4 mg PO Q8H PRN (Reason: muscle spasm) meloxicam 15 mg tablet 15 mg PO QDAY pantoprazole 40 mg tablet,delayed release (DR/EC) 40 mg PO QPM lisinopril 5 mg tablet 5 mg PO QDAY Health Concerns: Post Hospitalization: new medications and changes needed to prevent readmission or further decline. Pt educated and given instructions on all concerns. Plan of Treatment: Continue with present treatment and follow up plan. Pt is to keep follow up appointment as instructed and take medications as ordered. Orders to Discharge Patient Discharge Orders: Transfer (Routine); Ordered 12/10/23 Ordered By: MIRYAM MOMIN Follow ups/Referrals Follow ups/Referrals: HOLDEN SORTO [Primary Care Provider] - 3 days Instructions Stand Alone Forms: Post Hospital Follow Up Care
[2023-12-10] MEDS: NS 1,000 ML IV 1,000 ML IV ONE (16:09)
[2023-12-10 16:21] LABS: BASOPHILS # (AUTO) 0.1 X10^3/uL (0.0-0.1); EOSINOPHILS # (AUTO) 0.1 x10^3/uL (0.0-0.2); EOSINOPHILS % (AUTO) 0.9 % (0.9-2.9); HEMATOCRIT 36.6 % (42.0-54.0); HEMOGLOBIN 12.6 g/dL (13.5-18.0); LYMPHOCYTES # (AUTO) 1.4 X10^3/uL (1.3-2.9); LYMPHOCYTES % (AUTO) 14.2 % (21.0-51.0); MEAN CORPUSCULAR HGB CONC 34.5 g/dL (33.0-35.0); MEAN CORPUSCULAR VOLUME 89.8 fL (80.0-100.0); MEAN PLATELET VOLUME 7.4 fL (7.4-11.0); MONOCYTES # (AUTO) 0.4 x10^3/uL (0.3-0.8); NEUTROPHILS % (AUTO) 79.9 % (42.0-75.0); PLATELET COUNT 179 X10^3/uL (150.0-450.0); RED BLOOD COUNT 4.08 X10^6/uL (4.7-6.0); RED CELL DISTRIBUTION WIDTH 14.2 % (11.6-16.5)
[2023-12-10 16:29] LABS: BILIRUBIN,URINE NEGATIVE (NEGATIVE); BLOOD/HEMOGLOBIN,URINE NEGATIVE (NEGATIVE); GLUCOSE, URINE NEGATIVE (NEGATIVE); KETONES,URINE NEGATIVE (NEGATIVE); LEUKOCYTE ESTERASE ,URINE NEGATIVE (NEGATIVE); NITRITES,URINE NEGATIVE (NEGATIVE); PROTEIN,URINE NEGATIVE (NEGATIVE); UROBILINOGEN,URINE NORMAL (NORMAL)
[2023-12-10 16:35] LABS: APPEARANCE,URINE CLEAR (CLEAR); COLOR,URINE YELLOW (YELLOW)
[2023-12-10 16:41] LABS: ALANINE AMINOTRANSFERASE 50 Units/L (12-78); ALBUMIN 3.2 g/dL (3.4-5.0); ALKALINE PHOSPHATASE 107 Units/L (46-116); BLOOD UREA NITROGEN 19 mg/dL (7-18); CALCIUM 8.2 mg/dL (8.5-10.1); CARBON DIOXIDE 24.3 mmol/L (21-32); CHLORIDE 101 mmol/L (98-107); COR CA(FOR HYPOALB) 8.8 mg/dL (8.5-10.1); COR NA(FOR HYPERGLY) 137 mmol/L (136-145); CREATININE 0.84 mg/dL (0.70-1.30); GLUCOSE 136 mg/dL (65-99); POTASSIUM 4.1 mmol/L (3.5-5.1); SODIUM 136 mmol/L (136-145); TOTAL PROTEIN 6.6 g/dL (6.4-8.2); eGFR NON BLACK RACES > 60 (>60)
[2023-12-10 16:54] LABS: ASPARTATE AMINO TRANSFERASE 52 Units/L (15-37); CREATINE KINASE 2364 Units/L (39-308)
[2023-12-10] MEDS: NS 1,000 ML IV 1,000 ML IV SCH (17:42)
--- NOTE | 2023-12-10 18:31 | EKG ---
Test Reason : CHEST PAIN Blood Pressure : */* mmHG Vent. Rate : 52 BPM Atrial Rate : 52 BPM P-R Int : 128 ms QRS Dur : 90 ms QT Int : 414 ms P-R-T Axes : 45 5 26 degrees QTc Int : 385 ms Sinus bradycardia with premature supraventricular complexes Otherwise normal ECG When compared with ECG of 31-JUL-2022 16:06, premature supraventricular complexes are now present Confirmed by Saul Silveira MD ([id number]) on 12/11/2023 7:25:55 AM Referred By: Confirmed By: Saul Silveira MD
[2023-12-10] MEDS ORDERED: ZANAFLEX PO PRN (19:23)
[2023-12-10] MEDS: PROTONIX TAB 40 MG PO SCH (20:38)
[2023-12-11 06:13] LABS: BASOPHILS # (AUTO) 0.1 X10^3/uL (0.0-0.1); BASOPHILS % (AUTO) 0.4 % (0.2-1.0); EOSINOPHILS # (AUTO) 0.1 x10^3/uL (0.0-0.2); EOSINOPHILS % (AUTO) 0.5 % (0.9-2.9); HEMATOCRIT 36.2 % (42.0-54.0); HEMOGLOBIN 12.4 g/dL (13.5-18.0); LYMPHOCYTES # (AUTO) 1.9 X10^3/uL (1.3-2.9); LYMPHOCYTES % (AUTO) 14.9 % (21.0-51.0); MEAN CORPUSCULAR HEMOGLOBIN 30.5 pg (27.0-34.0); MEAN CORPUSCULAR HGB CONC 34.2 g/dL (33.0-35.0); MEAN CORPUSCULAR VOLUME 89.4 fL (80.0-100.0); MEAN PLATELET VOLUME 7.9 fL (7.4-11.0); MONOCYTES # (AUTO) 0.6 x10^3/uL (0.3-0.8); MONOCYTES % (AUTO) 4.8 % (0.0-13.0); NEUTROPHILS % (AUTO) 79.4 % (42.0-75.0); PLATELET COUNT 170 X10^3/uL (150.0-450.0); RED BLOOD COUNT 4.05 X10^6/uL (4.7-6.0); RED CELL DISTRIBUTION WIDTH 14.4 % (11.6-16.5); WHITE BLOOD COUNT 12.7 X10^3/uL (3.6-10.0)
[2023-12-11 06:30] LABS: ALANINE AMINOTRANSFERASE 52 Units/L (12-78); ALBUMIN 2.8 g/dL (3.4-5.0); ALKALINE PHOSPHATASE 78 Units/L (46-116); ASPARTATE AMINO TRANSFERASE 64 Units/L (15-37); BLOOD UREA NITROGEN 11 mg/dL (7-18); CALCIUM 7.8 mg/dL (8.5-10.1); CARBON DIOXIDE 25.4 mmol/L (21-32); CHLORIDE 105 mmol/L (98-107); COR CA(FOR HYPOALB) 8.8 mg/dL (8.5-10.1); CREATININE 0.66 mg/dL (0.70-1.30); GLUCOSE 97 mg/dL (65-99); POTASSIUM 3.8 mmol/L (3.5-5.1); SODIUM 137 mmol/L (136-145); TOTAL PROTEIN 5.9 g/dL (6.4-8.2); eGFR NON BLACK RACES > 60 (>60)
[2023-12-11 06:33] LABS: CREATINE KINASE 2329 Units/L (39-308)
[2023-12-11] MEDS ORDERED: CONSULT PHARMACY - POTASSIUM & MAGNESIUM XX SCH (09:00)
[2023-12-11] MEDS: MOBIC TAB 15 MG PO SCH (09:04)
[2023-12-11] MEDS: K-DUR TAB 20 MEQ PO SCH (09:05)
[2023-12-11 10:36] LABS: BILIRUBIN,URINE NEGATIVE (NEGATIVE); BLOOD/HEMOGLOBIN,URINE 1+ (NEGATIVE); GLUCOSE, URINE NEGATIVE (NEGATIVE); KETONES,URINE NEGATIVE (NEGATIVE); LEUKOCYTE ESTERASE ,URINE NEGATIVE (NEGATIVE); NITRITES,URINE NEGATIVE (NEGATIVE); PH,URINE 6.5 (5.0 - 8.0); PROTEIN,URINE NEGATIVE (NEGATIVE); UROBILINOGEN,URINE NORMAL (NORMAL)
[2023-12-11 10:44] LABS: APPEARANCE,URINE CLEAR (CLEAR); COLOR,URINE PALE YELLOW (YELLOW)
[2023-12-11 10:45] LABS: BACTERIA,URINE NEGATIVE /HPF (NEGATIVE); RBC,URINE 0-2 /HPF (0-3); SQUAMOUS EPITHELIAL CELL,UR NEGATIVE /HPF (NEGATIVE)
[2023-12-11] MEDS: NS 1,000 ML IV 1,000 ML IV SCH ×2 (11:04→13:00)
[2023-12-11] MEDS: ZESTRIL TAB 10 MG PO SCH (11:07)
--- NOTE | 2023-12-11 15:20 | DR.H&P ---
H&P History & Physical for Day of: H&P Date: 12/10/23 Chief Complaint Chief Complaint: WEAKNESS, SOB History of Present Illness History of Present Illness: PT IS 63 HM, ER ADMISSION AFTER PRESENTING WITH WEAKNESS, DIZZY SPELLS, NEAR SYNCOPE FOR THE PAST WEEK. PT REPORTS HE HAS BEEN WORKING OUTDOORS IN THE HEAT, SUN, WITH EXCESSIVE SWEATING. PT REPORTS HE HAS BEEN WEAK ALL OVER WITH MUSCLE CRAMPING. PT DENIES ANY FEVER OR FLU SYMPTOMS OVER THE PAST WEEK. PT IS ON LINSOPRIL FOR BP CONTROL AND REPORTS HE HAS BEEN TAKING IT DAILY. PT ADMITTED FOR TREATMENT AND EVALUATION OF ACUTE ILLNESS. Past Medical History Past Medical History: Arthritis and Hypertension Past Surgical History Surgical History: Appendectomy and Other Additional Surgical History: SKIN GRAFT LLE Family History Family Medical History: Hypertension Social History Type of Tobacco Use: None Alcohol Use: None Medications Home Medications: Home Medications Medication Instructions Recorded Confirmed Type lisinopril 5 mg tablet 5 mg PO QDAY 12/28/22 12/10/23 History meloxicam 15 mg tablet 15 mg PO QDAY 12/28/22 12/10/23 History pantoprazole 40 mg tablet,delayed 40 mg PO QPM 12/28/22 12/10/23 History release ibuprofen 800 mg tablet 800 mg PO Q6H PRN pain 12/10/23 12/10/23 History tizanidine 4 mg tablet 4 mg PO Q8H PRN muscle spasm 12/10/23 12/10/23 History Allergies Allergies Allergy/AdvReac Type Severity Reaction Status Date / Time No Known Allergies Allergy Verified 12/10/23 15:33 Labs 12/11/23 05:22 12/11/23 05:22 Labs: Laboratory WBC 12.7 X10^3/uL (3.6-10.0) H 12/11/23 05:22 RBC 4.05 X10^6/uL (4.7-6.0) L 12/11/23 05:22 Hgb 12.4 g/dL (13.5-18.0) L 12/11/23 05:22 Hct 36.2 % (42.0-54.0) L 12/11/23 05:22 MCV 89.4 fL (80.0-100.0) 12/11/23 05:22 MCH 30.5 pg (27.0-34.0) 12/11/23 05:22 MCHC 34.2 g/dL (33.0-35.0) 12/11/23 05:22 RDW 14.4 % (11.6-16.5) 12/11/23 05:22 Plt Count 170 X10^3/uL (150.0-450.0) 12/11/23 05:22 MPV 7.9 fL (7.4-11.0) 12/11/23 05:22 Neut % (Auto) 79.4 % (42.0-75.0) H 12/11/23 05:22 Lymph % (Auto) 14.9 % (21.0-51.0) L 12/11/23 05:22 [place] % (Auto) 4.8 % (0.0-13.0) 12/11/23 05:22 Eos % (Auto) 0.5 % (0.9-2.9) L 12/11/23 05:22 Baso % (Auto) 0.4 % (0.2-1.0) 12/11/23 05:22 Neut # (Auto) 10.0 x10^3/uL (2.2-4.8) H 12/11/23 05:22 Lymph # (Auto) 1.9 X10^3/uL (1.3-2.9) 12/11/23 05:22 [place] # (Auto) 0.6 x10^3/uL (0.3-0.8) 12/11/23 05:22 Eos # (Auto) 0.1 x10^3/uL (0.0-0.2) 12/11/23 05:22 Baso # (Auto) 0.1 X10^3/uL (0.0-0.1) 12/11/23 05:22 Absolute Nucleated RBC 0.2 /100WBC 12/11/23 05:22 Sodium 137 mmol/L (136-145) 12/11/23 05:22 Corrected Sodium TNP 12/11/23 05:22 Potassium 3.8 mmol/L (3.5-5.1) 12/11/23 05:22 Chloride 105 mmol/L (98-107) 12/11/23 05:22 Carbon Dioxide 25.4 mmol/L (21-32) 12/11/23 05:22 BUN 11 mg/dL (7-18) 12/11/23 05:22 Creatinine 0.66 mg/dL (0.70-1.30) L 12/11/23 05:22 Est GFR (MDRD) Af Amer > 60 (>60) 12/11/23 05:22 Est GFR (MDRD) Non-Af > 60 (>60) 12/11/23 05:22 Glucose 97 mg/dL (65-99) 12/11/23 05:22 Calcium 7.8 mg/dL (8.5-10.1) L 12/11/23 05:22 Corrected Calcium 8.8 mg/dL (8.5-10.1) 12/11/23 05:22 Total Bilirubin 0.60 mg/dL (0.2-1.0) 12/11/23 05:22 AST 64 Units/L (15-37) H 12/11/23 05:22 ALT 52 Units/L (12-78) 12/11/23 05:22 Alkaline Phosphatase 78 Units/L (46-116) 12/11/23 05:22 Creatine Kinase 2329 Units/L (39-308) H 12/11/23 05:22 Troponin I High Sens 46.8 ng/L (4.0-60.0) 12/10/23 19:34 Total Protein 5.9 g/dL (6.4-8.2) L 12/11/23 05:22 Albumin 2.8 g/dL (3.4-5.0) L 12/11/23 05:22 Globulin 3.1 g/dL (2.5-4.5) 12/11/23 05:22 Albumin/Globulin Ratio 0.9 Ratio (1.1-2.1) L 12/11/23 05:22 Specimen Type Clean catch urine 12/11/23 10:12 Urine Color Pale yellow (YELLOW) 12/11/23 10:12 Urine Appearance Clear (CLEAR) 12/11/23 10:12 Urine pH 6.5 (5.0 - 8.0) 12/11/23 10:12 Ur Specific [place] 1.010 (1.000-1.030) 12/11/23 10:12 Urine Protein Negative (NEGATIVE) 12/11/23 10:12 Urine Glucose (UA) Negative (NEGATIVE) 12/11/23 10:12 Urine Ketones Negative (NEGATIVE) 12/11/23 10:12 Urine Blood 1+ (NEGATIVE) 12/11/23 10:12 Urine Nitrite Negative (NEGATIVE) 12/11/23 10:12 Urine Bilirubin Negative (NEGATIVE) 12/11/23 10:12 Urine Urobilinogen Normal (NORMAL) 12/11/23 10:12 Ur Leukocyte Esterase Negative (NEGATIVE) 12/11/23 10:12 Urine RBC 0-2 /HPF (0-3) 12/11/23 10:12 Urine WBC None seen /HPF (0-5) 12/11/23 10:12 Ur Squamous Epith Cells Negative /HPF (NEGATIVE) 12/11/23 10:12 Urine Bacteria Negative /HPF (NEGATIVE) 12/11/23 10:12 Ur Culture Indicated? No/not indicated 12/11/23 10:12 Ethyl Alcohol mg/dL < 3.0 mg/dL (0-19.9) 12/11/23 05:22 Review of Systems Constitutional: Weakness Eyes: No Symptoms Reported ENT: No Symptoms Reported Respiratory: denies Cough, Shortness of Breath or Hemoptysis Cardiovascular: Palpitations and Light Headedness Gastrointestinal: Nausea; denies Vomiting, Diarrhea or Constipation Musculoskeletal: Back Pain Skin: No Symptoms Reported Neurological: Weakness (DIFFUSE) and Other (DIZZY SPELLS ) Physical Exam Vital Signs: Vital Signs Temperature 97.6 F Temperature 97.6 F Pulse Rate [Bilateral Radial] 54 Pulse Rate [Bilateral Radial] 54 Respiratory Rate 20 Respiratory Rate 20 Blood Pressure [Left Arm] 175/82 Blood Pressure [Left Arm] 145/79 Blood Pressure [Left Arm] 170/74 O2 Sat by Pulse Oximetry 99 O2 Sat by Pulse Oximetry 97 Oriented: Normal Eyes: Normal Ear: Normal Nose: Normal Throat: Dry Respiratory: RLL Diminished and LLL Diminished Cardiovascular: Bradycardia : Normal Auscultation: Bowel Sounds: Normal Palpation: Normal Tenderness: Normal Skin: Decreased [place] Musculoskeletal: Back:Lumbar Psychiatric: Normal Mood Description: Anxious Affect: Normal Speech Pattern: Clear and Appropriate Assessment/Plan (1) Elevated CK-MB level: Narrative Support Text: ADMIT, IV HYDRATION CE AND EKG UA, I&OS BP CONTROL PRN PAIN CONTROL Status: Acute (2) Heat exhaustion: Status: Acute (3) Muscle cramping: Status: Acute (4) Generalized weakness: Status: Acute
[2023-12-11] MEDS: MILK OF MAGNESIA PO PRN (18:29)
[2023-12-12 06:15] LABS: BASOPHILS % (AUTO) 0.5 % (0.2-1.0); EOSINOPHILS # (AUTO) 0.1 x10^3/uL (0.0-0.2); EOSINOPHILS % (AUTO) 1.6 % (0.9-2.9); HEMATOCRIT 35.9 % (42.0-54.0); HEMOGLOBIN 12.2 g/dL (13.5-18.0); LYMPHOCYTES # (AUTO) 2.4 X10^3/uL (1.3-2.9); LYMPHOCYTES % (AUTO) 26.5 % (21.0-51.0); MEAN CORPUSCULAR HEMOGLOBIN 30.4 pg (27.0-34.0); MEAN CORPUSCULAR HGB CONC 33.9 g/dL (33.0-35.0); MEAN CORPUSCULAR VOLUME 89.9 fL (80.0-100.0); MONOCYTES # (AUTO) 0.6 x10^3/uL (0.3-0.8); MONOCYTES % (AUTO) 6.1 % (0.0-13.0); NEUTROPHILS # (AUTO) 5.9 x10^3/uL (2.2-4.8); NEUTROPHILS % (AUTO) 65.3 % (42.0-75.0); PLATELET COUNT 172 X10^3/uL (150.0-450.0); RED CELL DISTRIBUTION WIDTH 14.4 % (11.6-16.5)
[2023-12-12 06:40] LABS: ALANINE AMINOTRANSFERASE 53 Units/L (12-78); ALBUMIN 2.7 g/dL (3.4-5.0); ALKALINE PHOSPHATASE 67 Units/L (46-116); ASPARTATE AMINO TRANSFERASE 55 Units/L (15-37); BLOOD UREA NITROGEN 9 mg/dL (7-18); CARBON DIOXIDE 27.5 mmol/L (21-32); CHLORIDE 105 mmol/L (98-107); CREATINE KINASE 1894 Units/L (39-308); CREATININE 0.74 mg/dL (0.70-1.30); GLUCOSE 92 mg/dL (65-99); MAGNESIUM 1.7 mg/dL (2.0-2.9); SODIUM 138 mmol/L (136-145); TOTAL PROTEIN 5.7 g/dL (6.4-8.2); eGFR NON BLACK RACES > 60 (>60)
[2023-12-12 07:41] VITALS: RESP 19
[2023-12-12] MEDS: ZESTRIL TAB 10 MG PO SCH (09:03)
[2023-12-12] MEDS: NS 1,000 ML IV 1,000 ML IV ONE (09:04)
[2023-12-12 12:12] VITALS: BP 148/77; PULSE 51; TEMP 98; O2SAT 99
[2023-12-12] MEDS ORDERED: MAG-OX TAB PO SCH (17:00)
--- NOTE | 2023-12-17 17:08 | PCM.DCPLAN ---
DISCHARGE SUMMARY Admission Date Date of Admission: 12/10/23 Discharge Date Discharge Date: 12/12/23 Admission Diagnoses (1) Elevated CK-MB level: Status: Acute (2) Heat exhaustion: Status: Acute (3) Muscle cramping: Status: Acute (4) Generalized weakness: Status: Acute Discharge Medications Discharge Medications: Home Medication List ibuprofen 800 mg tablet 800 mg PO Q6H PRN pain 12/10/23 [History] tizanidine 4 mg tablet 4 mg PO Q8H PRN muscle spasm 12/10/23 [History] Prescriptions: Hospital Course Latest Lab Results: Laboratory Last Values WBC 9.0 X10^3/uL (3.6-10.0) 12/12/23 05:42 RBC 4.00 X10^6/uL (4.7-6.0) L 12/12/23 05:42 Hgb 12.2 g/dL (13.5-18.0) L 12/12/23 05:42 Hct 35.9 % (42.0-54.0) L 12/12/23 05:42 MCV 89.9 fL (80.0-100.0) 12/12/23 05:42 MCH 30.4 pg (27.0-34.0) 12/12/23 05:42 MCHC 33.9 g/dL (33.0-35.0) 12/12/23 05:42 RDW 14.4 % (11.6-16.5) 12/12/23 05:42 Plt Count 172 X10^3/uL (150.0-450.0) 12/12/23 05:42 MPV 8.0 fL (7.4-11.0) 12/12/23 05:42 Neut % (Auto) 65.3 % (42.0-75.0) 12/12/23 05:42 Lymph % (Auto) 26.5 % (21.0-51.0) 12/12/23 05:42 [place] % (Auto) 6.1 % (0.0-13.0) 12/12/23 05:42 Eos % (Auto) 1.6 % (0.9-2.9) 12/12/23 05:42 Baso % (Auto) 0.5 % (0.2-1.0) 12/12/23 05:42 Neut # (Auto) 5.9 x10^3/uL (2.2-4.8) H 12/12/23 05:42 Lymph # (Auto) 2.4 X10^3/uL (1.3-2.9) 12/12/23 05:42 [place] # (Auto) 0.6 x10^3/uL (0.3-0.8) 12/12/23 05:42 Eos # (Auto) 0.1 x10^3/uL (0.0-0.2) 12/12/23 05:42 Baso # (Auto) 0.0 X10^3/uL (0.0-0.1) 12/12/23 05:42 Absolute Nucleated RBC 0.1 /100WBC 12/12/23 05:42 Sodium 138 mmol/L (136-145) 12/12/23 05:42 Corrected Sodium TNP 12/12/23 05:42 Potassium 4.0 mmol/L (3.5-5.1) 12/12/23 05:42 Chloride 105 mmol/L (98-107) 12/12/23 05:42 Carbon Dioxide 27.5 mmol/L (21-32) 12/12/23 05:42 BUN 9 mg/dL (7-18) 12/12/23 05:42 Creatinine 0.74 mg/dL (0.70-1.30) 12/12/23 05:42 Est GFR (MDRD) Af Amer > 60 (>60) 12/12/23 05:42 Est GFR (MDRD) Non-Af > 60 (>60) 12/12/23 05:42 Glucose 92 mg/dL (65-99) 12/12/23 05:42 Calcium 8.0 mg/dL (8.5-10.1) L 12/12/23 05:42 Corrected Calcium 9.0 mg/dL (8.5-10.1) 12/12/23 05:42 Magnesium 1.7 mg/dL (2.0-2.9) L 12/12/23 05:42 Total Bilirubin 0.40 mg/dL (0.2-1.0) 12/12/23 05:42 AST 55 Units/L (15-37) H 12/12/23 05:42 ALT 53 Units/L (12-78) 12/12/23 05:42 Alkaline Phosphatase 67 Units/L (46-116) 12/12/23 05:42 Creatine Kinase 2078 Units/L (39-308) H 12/12/23 12:02 Troponin I High Sens 46.8 ng/L (4.0-60.0) 12/10/23 19:34 Total Protein 5.7 g/dL (6.4-8.2) L 12/12/23 05:42 Albumin 2.7 g/dL (3.4-5.0) L 12/12/23 05:42 Globulin 3.0 g/dL (2.5-4.5) 12/12/23 05:42 Albumin/Globulin Ratio 0.9 Ratio (1.1-2.1) L 12/12/23 05:42 Specimen Type Clean catch urine 12/11/23 10:12 Urine Color Pale yellow (YELLOW) 12/11/23 10:12 Urine Appearance Clear (CLEAR) 12/11/23 10:12 Urine pH 6.5 (5.0 - 8.0) 12/11/23 10:12 Ur Specific [place] 1.010 (1.000-1.030) 12/11/23 10:12 Urine Protein Negative (NEGATIVE) 12/11/23 10:12 Urine Glucose (UA) Negative (NEGATIVE) 12/11/23 10:12 Urine Ketones Negative (NEGATIVE) 12/11/23 10:12 Urine Blood 1+ (NEGATIVE) 12/11/23 10:12 Urine Nitrite Negative (NEGATIVE) 12/11/23 10:12 Urine Bilirubin Negative (NEGATIVE) 12/11/23 10:12 Urine Urobilinogen Normal (NORMAL) 12/11/23 10:12 Ur Leukocyte Esterase Negative (NEGATIVE) 12/11/23 10:12 Urine RBC 0-2 /HPF (0-3) 12/11/23 10:12 Urine WBC None seen /HPF (0-5) 12/11/23 10:12 Ur Squamous Epith Cells Negative /HPF (NEGATIVE) 12/11/23 10:12 Urine Bacteria Negative /HPF (NEGATIVE) 12/11/23 10:12 Ur Culture Indicated? No/not indicated 12/11/23 10:12 Ethyl Alcohol mg/dL < 3.0 mg/dL (0-19.9) 12/11/23 05:22 Hospital Course: The patient is a 63-year-old male who was admitted after presenting to the ER with complaints of weakness, dizzy spells, and near syncope for the past week. The patient reported working outdoors in the heat and sun, experiencing excessive sweating, generalized weakness, and muscle cramping. He was admitted for evaluation and treatment of acute illness, specifically for elevated creatine kinase levels, which were 2364 on admission and improved to 1894 during his stay. The patient was treated with IV hydration and reports feeling significantly better. He reports improvement in weakness. A repeat CK level will be checked today before discharge, with a follow-up CK test scheduled for Friday. The patient is on Lisinopril for blood pressure control and reports regular compliance with his medication. Please see discharge plan for list of discharge medications and modifications that were made and his electronic medical record for diagnostic tests and labs. The patient was instructed to return to the ER if condition changes or worsens unexpectedly. He denied any chest pain or shortness of breath at the time of discharge.
== END 2023-12-12 14:00 | disposition home or self-care (01) | DRG 948 ==
LOC: MED/SURG 15:15 → ER 15:15 → OBSVTOIN 18:30 → MED/SURG 19:35
PROVIDERS: ADMIT Family Medicine; ATTEND Family Medicine
DX: R53.1 Weakness; R74.8 Abnormal levels of other serum enzymes; R42 Dizziness and giddiness; I10 Essential (primary) hypertension; T67.5XXA Heat exhaustion, unspecified, initial encounter; F10.90 Alcohol use, unspecified, uncomplicated; R06.02 Shortness of breath; R25.2 Cramp and spasm; R55 Syncope and collapse; R07.89 Other chest pain